=== PATIENT | female | born 1970 | race Caucasian/White ===

== ENCOUNTER 2017-12-25 21:07 | Emergency (ER) | payer OTHER ==
[2017-12-25] MEDS ORDERED: Adacel (T-DAP) 0.5 ML SYRINGE ONE (21:20)
[2017-12-25] MEDS ORDERED: predniSONE 20 MG TAB ONE (21:31)
== END 2017-12-25 21:45 | disposition home or self-care (01) ==
LOC: BURERS 21:07
DX: L25.1 Unspecified contact dermatitis due to drugs in contact with skin (principal); T49.0X5A Adverse effect of local antifungal, anti-infective and anti-inflammatory drugs, initial encounter
CPT/HCPCS: 87070; 87205; 90471; 90715; J7506